=== PATIENT | male | born 1950 | race Caucasian/White ===

== ENCOUNTER 2023-01-25 11:21 | Emergency (ER) | payer MEDICARE, SELFPAY ==
--- NOTE | ~2023-01-25 | CT_ITS ---
EXAMINATION: CT HEAD WITHOUT CONTRAST CLINICAL INFORMATION: Pain after head injury COMPARISON: None available. TECHNIQUE: Contiguous axial imaging was performed from the skull base to vertex without intravenous administration of contrast. This CT examination was performed using dose optimization techniques as appropriate, variously including the following: *Automated exposure control *Adjustment of mA and/or kV according to patient size (this includes techniques or standardized protocols for targeted exams where dose is matched to indication/reason for exam; i.e. extremities or head) *Use of iterative reconstruction technique DLP: 793 mGy-cm FINDINGS: There is soft tissue swelling and scalp hematoma overlying the frontal bone but no underlying calvarial fracture. No intra or extra-axial fluid collection, hemorrhage, mass or mass effect. There is prominence to the sulci and white matter involutional changes are noted. There is lobular mucoperiosteal thickening in the maxillary sinus. CT/CT head/brain wo IV con IMPRESSION: Soft tissue swelling anteriorly. No fracture or intracranial hemorrhage.
--- NOTE | ~2023-01-25 | XR_ITS ---
EXAMINATION: XR KNEE, LEFT CLINICAL INFORMATION: Fall. COMPARISON: None available. TECHNIQUE: Two views of the left knee. FINDINGS: Nonspecific metallic body measuring 5.5 cm overlying the distal thigh, only visualized on the AP view, most likely external to the patient. No acute fractures or subluxation. Mild joint space narrowing of the medial and patellofemoral compartments. Small enthesophyte along the upper pole of the patella. Approximately 3 mm intra-articular osseous body visualized on the AP view. No chondrocalcinosis. No significant joint effusion. XR/XR knee LT 2V IMPRESSION: 1. No acute fractures or subluxation. 2. Mild degenerative osteoarthritis of the medial and patellofemoral compartments. 3. Approximately 3 mm intra-articular osseous body. 4. Large metallic body overlying the distal thigh on the AP view, most likely external to the patient, not visualized on the lateral view. Recommend correlation with physical examination.
--- NOTE | ~2023-01-25 | CT_ITS ---
EXAMINATION: NONCONTRAST MAXILLOFACIAL CT NONCONTRAST CERVICAL SPINE CT INDICATION INFORMATION: Fall, neck pain. COMPARISON: No similar priors. TECHNIQUE: Separate noncontrast CT examinations of the maxillofacial and cervical spine were performed. Coronal and sagittal images were created for each examination at the technologist workstation. This CT examination was performed using dose optimization techniques as appropriate, variously including the following: *Automated exposure control *Adjustment of mA and/or kV according to patient size (this includes techniques or standardized protocols for targeted exams where dose is matched to indication/reason for exam; i.e. extremities or head) *Use of iterative reconstruction technique DLP: 454 and 310 mGy-cm FINDINGS: Maxillofacial: Questionable nondisplaced, age indeterminate nasal alae fractures. No additional maxillofacial bony injuries. Mucus retention cysts in the inferior right maxillary sinus. No air-fluid levels. Other paranasal sinuses are clear. The mandibular heads are well-seated in the condylar fossa. The orbits demonstrate a normal appearance bilaterally. The globes are intact, and there are no suspicious findings to suggest retrobulbar hemorrhage. Cervical spine: There is anatomic alignment of the vertebral bodies and posterior elements. The atlantoaxial and atlantooccipital articulations are intact. Vertebral body heights are maintained. There is multilevel intervertebral disc space narrowing with endplate osteophyte formation and facet arthropathy. No evidence of acute fracture. No prevertebral soft tissue swelling. Right right greater than left biapical subpleural thickening/scarring. The thyroid gland is unremarkable. No significant abnormality in the visualized soft tissues of the neck. CT/CT cervical spine wo IV con IMPRESSION: 1. Questionable nondisplaced, age indeterminate nasal alae fractures. Recommend correlation with point tenderness. 2. No additional maxillofacial bony injuries. 3. No acute cervical fractures or malalignment. 4. Cervical spondylosis.
--- NOTE | ~2023-01-25 | XR_ITS ---
EXAMINATION: XR HAND, LEFT CLINICAL INFORMATION: Ring finger bruising. COMPARISON: None available. TECHNIQUE: PA, lateral, and oblique views of the left hand. FINDINGS: Patient was unable to removed ring from fourth digit. However, accounting for this limitation, no discrete fractures or subluxation are seen. No unexpected radiopaque foreign bodies. Mild multifocal degenerative osteoarthritis with joint space narrowing and a small marginal osteophytes. Negative ulnar variance. XR/XR hand LT min 3V IMPRESSION: 1. No acute fractures or malalignment. 2. Mild multifocal degenerative osteoarthritis. 3. Negative ulnar variance.
[2023-01-25 12:24] VITALS: BP 166/70; PULSE 56; RESP 18; TEMP 36.6; O2SAT 97; BMI 34.2
--- NOTE | 2023-01-25 12:24 | ED_ITS ---
HPI - Fall General Chief Complaint: Fall Stated Complaint: Facial Lac S/P Fall 01/24/23 Time Seen by Provider: 01/25/23 12:23 Source: patient, family, RN notes reviewed and old records reviewed Mode of arrival: ambulatory History of Present Illness HPI Narrative: 72-year-old male with no significant past medical history presenting to the ED complaining of headache, facial pain/swelling, neck pain, left hand and knee pain s/p mechanical trip and fall over dog last night around 22:00. Denies symptoms prior to fall. Denies taking anticoagulation or LOC. Ambulatory after incident. Reports nosebleed after incident which was self-resolved. Reports mild blurry vision. Denies vision loss, nausea/vomiting, CP/SOB, abdominal pain, back pain, incontinence MD complaint: fall Onset (ago): hour(s) Related Data Previous Rx's Medication Instructions Recorded amoxicillin 875 mg-potassium 1 tab PO BID 7 days #14 tabs 01/25/23 clavulanate 125 mg tablet Allergies Allergy/AdvReac Type Severity Reaction Status Date / Time No Known Allergies Allergy Verified 01/25/23 12:28 Review of Systems Review of Systems: Constitutional: No Fever, No Chills, No Fatigue, No Malaise ENT/Mouth: +facial swelling & pain, No Ear Pain, No Nasal Congestion, No Sinus Pain, No sore throat, No Rhinorrhea, No Swallowing Difficulty Eyes: No Eye Pain, No Swelling, No Redness, + Vision Changes Cardiovascular: No Chest Pain, No SOB Respiratory: No Cough, No Sputum, No Dyspnea Gastrointestinal: No Nausea, No Vomiting, No Diarrhea, No Constipation, No Abdominal pain Genitourinary: No Hematuria, No Urinary Incontinence/retention, No Flank Pain Musculoskeletal: + joint pain, No Myalgias, + Joint Swelling Skin: + Skin Lesions, No rash Neuro: No Weakness, No Numbness, No Paresthesias, No Loss of Consciousness, No Dizziness, + Headache, No LOC Yes all other systems are reviewed and are negative Constitutional: Constitutional: Reports as per [facility] Past Medical History Attestation statement: The following information was validated with the patient. Source: old records reviewed Social History Social History Advance Directives: No Advance Directives Information Provided: Yes Physical Exam Vital Signs: Vital Signs: Last Vital Signs Temp 98 F 01/25/23 12:24 Pulse 56 01/25/23 12:24 Resp 18 01/25/23 12:24 BP 166/70 H 01/25/23 12:24 Pulse Ox 97 01/25/23 12:24 O2 Del Method Room Air 01/25/23 12:24 BMI result Body Mass Index 34.2 Const: General: cooperative, no acute distress, alert and awake Or ientation/consciousness: patient oriented x3 Limitations: no limitations HEENT: Other: + bilateral periorbital swelling and ecc hymosis. + forehead with superficial abrasions, erythema and tenderness. No palpable step-off. EOMs intact without entrapment or pain. + nasal bridge swelling/ecchymosis. No active epistaxis or septal hematoma Head: Yes normal to inspection, Yes atraumatic and No Doll's sign Ears: hearing grossly normal bilaterally General nose exam: No nasal discharge present Face and sinus: No crepitus and No laceration Mouth: Normal oral and palatal mucosa present and no drooling Throat: Yes posterior oropharynx normal, Yes tonsils normal and Yes uvula midline Eyes: Pupils: Equal, round and reactive pupils present EOM: EOMs intact bilaterally Direct Ophthalmoscopy: no photophobia Neck: Other: No midline cervical spinous tenderness Neck: Yes normal visual inspection and Yes no meningeal signs Resp: Effort & Inspection: normal respiratory effort and no respiratory distress Auscultation: clear to auscultation bilaterally Cardio: Rate: regular rate Heart sounds: S1 normal heart sound present and S2 normal heart sound present GI: Inspection: Yes normal to inspection Palpation (GI): Soft to palpation, nontender, no guarding and not rigid Back/Spine/Pelvis: Other: No midline cervical/thoracic/lumbar spinous tenderness/step-off or deformity Skin: Rashes: no rashes Neuro: General: patient oriented x3, tone normal, moves all extremities, no meningeal signs, no focal motor deficits and CN's II-XI intact bilaterally Cranial nerves: Yes CN's II-XII intact bilaterally and Yes Equal, round and reactive pupils present Gait exam (Neuro): Normal gait present Extrem: Other: Left proximal 4th digit with ecchymosis & swelling. Ring in place. FROM intact. L knee with mild swelling. No deformity. Full range of motion intact. Neurovascularly intact Course Course Course Narrative: CT head/brain wo IV con IMPRESSION: Soft tissue swelling anteriorly. No fracture or intracranial hemorrhage. CT facial bones wo IV con/CT cervical spine wo IV con IMPRESSION: 1. Questionable nondisplaced, age indeterminate nasal alae fractures. Recommend correlation with point tenderness. 2. No additional maxillofacial bony injuries. 3. No acute cervical fractures or malalignment. 4. Cervical spondylosis. XR knee LT 2V IMPRESSION: 1. No acute fractures or subluxation. 2. Mild degenerative osteoarthritis of the medial and patellofemoral compartments. 3. Approximately 3 mm intra-articular osseous body. 4. Large metallic body overlying the distal thigh on the AP view, most likely external to the patient, not visualized on the lateral view. Recommend correlation with physical examination. > patient had change in his pocket during initial x-ray XR hand LT min 3V IMPRESSION: 1. No acute fractures or malalignment. 2. Mild multifocal degenerative osteoarthritis. 3. Negative ulnar variance. Results discussed with patient including worrisome signs and symptoms and strict return precautions, and when to return to the emergency department. They verbalized understanding and feel safe for discharge at this time. Medical Decision Making Medical Decision Making [facility] Narrative: 72-year-old male with no significant past medical history presenting to the ED complaining of headache, facial pain/swelling, neck pain, left hand and knee pain s/p mechanical trip and fall over dog last night around 22:00. On exam vital signs stable, NAD, nontoxic appearing, physical exam as noted above. No midline spinous tenderness throughout or red flag symptoms. No focal neuro deficits. Concern for concussion vs fractures vs sprain. No evidence of ocular entrapment. Low suspicion for intrathoracic or intra-abdominal bleeding/injury. Low suspicion for cauda equina/cord compression or syncope Recommended ring removal/cutting off, however patient refused > states he bruises/swells very easily & its common for ring to be stuck how it is Plan: Head/C-spine, facial CT, x-rays Please refer to course for remaining clinical decision making, interpretation of labs/imaging results, and discussions with consultants and/or family members. Differential Diagnosis Differential Diagnoses: The differential diagnosis associated with the presentation includes As above Admission/Observation Consideration of admission/observation: Escalation of care including admission/observation considered Lab Data [facility] Lab Attestation statement: I reviewed the patient's lab results. Independent Interpretation I performed an independent interpretation of an: Plain X-Ray and CT Scan Radiology Impression Discussion of test interpretation with radiology: I have reviewed the radiologist's reading. Independent Historian Clinical information obtained from an independent historian. History obtained from or confirmed by: Spouse External Record Review External record reviewed: Inpatient record, Office record, Outpatient record, Prior outpatient labs, Prior outpatient radiology, Primary care record and Outside ED record Tests considered The following testing was considered but not selected: As above Prescription Management I considered prescription management with: Pain Medication Discharge Plan Discharge Clinical Impression: Closed fracture nasal bone, Periorbital ecchymosis, Osteoarthritis Patient Disposition: Home, Self-Care Instructions: Nasal Fracture (ED), Black Eye (ED), Osteoarthritis (DC) Additional Instructions: You likely have a nasal bone fracture. Augmentin is an antibiotic please take as prescribed. You also have osteoarthritis. Please have close follow-up with your doctor Ice painful areas Take Tylenol /Motrin You will likely have a concussion we recommend brain rest. Avoid bright lights, screen time, loud noise. If he develop constant worsening headache, nausea/vomiting or weakness return to the ED Prescriptions: New amoxicillin-pot clavulanate 875-125 mg tablet 1 tab PO BID 7 Days Qty: 14 0RF Referrals: Yvonne Worthy MD [Primary Care Provider] - Juanito Aguiar [Physician] - Interventions: ED Discharge Assessment Last Done: 01/25/23 15:49 Discharge Date/Time: 01/25/23 15:49
== END 2023-01-25 15:49 | disposition home or self-care (01) ==
PROVIDERS: Emergency Provider Emergency Medicine; PCP Internal Medicine
DX: S02.2XXA Fracture of nasal bones, initial encounter for closed fracture (principal); S05.12XA Contusion of eyeball and orbital tissues, left eye, initial encounter; S05.11XA Contusion of eyeball and orbital tissues, right eye, initial encounter; R51.9 Headache, unspecified; M54.2 Cervicalgia; M25.562 Pain in left knee; M79.642 Pain in left hand; V80.018A Animal-rider injured by fall from or being thrown from other animal in noncollision accident, initial encounter; Y93.9 Activity, unspecified; Y92.9 Unspecified place or not applicable; Y99.9 Unspecified external cause status
CPT/HCPCS: 70450; 70486; 72125; 73130; 73560; 99282; 99284